=== PATIENT | male | born 1995 | race Caucasian/White ===

== ENCOUNTER 2018-03-12 23:32 | Emergency (ER) | payer SELFPAY ==
[~2018-03-12] VITALS: Ht 170.2 cm; Wt 84.0 kg
[2018-03-13 00:29] VITALS: Ht 170.2 cm; Wt 84.0 kg
[2018-03-13 02:51] LABS: BASOPHIL % 0.7 % (0-2); PLATELET COUNT 197 x10^3mcL (130-400); RED CELL DISTRIBUTION WIDTH 12.2 % (11.5-14.5)
[2018-03-13 02:54] LABS: CARBON DIOXIDE 30.8 mmol/L (21-32); CHLORIDE SERUM 103 mmol/L (98-107); CREATININE SERUM 0.9 mg/dL (0.7-1.3); GFR1 > 60 mL/min; GLUCOSE SERUM 102 mg/dL (74-106); POTASSIUM SERUM 4.1 mmol/L (3.5-5.1); SODIUM SERUM 140 mmol/L (136-145)
[2018-03-13 02:59] LABS: ALBUMIN 4.1 g/dL (3.4-5.0); ALKALINE PHOSPHATASE 85 U/L (46-116); ALT/SGPT 40 U/L (16-63); AST/SGOT 23 U/L (15-37); BILIRUBIN TOTAL 0.63 mg/dL (0.20-1.00); LIPASE 101 IU/L (73-393); TOTAL PROTEIN, SERUM 8.2 g/dL (6.4-8.2)
[2018-03-13 03:18] LABS: microscopic required? NO
[2018-03-13 03:32] LABS: urine erythrocyte NEGATIVE (NEGATIVE)
[2018-03-13 04:12] VITALS: BP 138/84
== END 2018-03-13 04:12 | disposition home or self-care (01) ==
LOC: ED 23:32
PROVIDERS: Emergency Medicine
DX: K29.70 Gastritis, unspecified, without bleeding (principal)
CPT/HCPCS: 36415; Q0092; Q0162